=== PATIENT | male | born 1960 ===

== ENCOUNTER → 2019-06-26 | Outpatient (CLI) | payer MEDICARE ==
--- NOTE | 2019-06-26 16:37 | RAD ---
Examination: VENOUS LOWER EXTREMITY RIGHT History: Right leg swelling Comparison/Correlation: None FINDINGS: Right lower extremity duplex venous ultrasound exam was performed. Grayscale, color Doppler, and spectral Doppler imaging was performed. Compression and augmentation was performed. The right common femoral vein, superficial femoral vein, popliteal vein, and greater saphenous vein are normal with no evidence of deep venous thrombus. Normal compressibility and augmentation is evident. Visualized right calf veins are unremarkable. Left common femoral vein is unremarkable. IMPRESSION: Normal right lower extremity venous duplex ultrasound exam. No evidence of deep venous thrombus involving the right lower extremity. Electronically signed by: Clinton Diaz MD (06/26/2019 4:34 PM) [facility]
== END | disposition home or self-care (01) ==
LOC: US 15:55
PROVIDERS: ATTEND Internal Medicine
DX: M79.89 Other specified soft tissue disorders (principal)
CPT/HCPCS: 93971